=== PATIENT | female | born 1985 | race Caucasian/White ===

== ENCOUNTER → 2019-07-27 11:16 | Outpatient (BNVA) | payer OTHER, SELFPAY | PROVIDERS: Visit Provider Nurse Practitioner Family | DX: J02.9 Acute pharyngitis, unspecified (principal); R05 Cough; J06.9 Acute upper respiratory infection, unspecified; Z20.828 Contact with and (suspected) exposure to other viral communicable diseases | CPT/HCPCS: 87071; 87400; 87635; 87880 ==

== ENCOUNTER → 2022-01-21 17:48 | Outpatient (BNVA) | payer OTHER, SELFPAY | PROVIDERS: Visit Provider Family Medicine | DX: J02.9 Acute pharyngitis, unspecified (principal); R05.9 Cough, unspecified; R50.9 Fever, unspecified | CPT/HCPCS: 87400; 87426; 87880 ==

== ENCOUNTER → 2022-11-20 13:07 | Outpatient (BNVA) | payer OTHER, SELFPAY | PROVIDERS: Visit Provider Family Medicine | DX: Z00.00 Encounter for general adult medical examination without abnormal findings (principal) | CPT/HCPCS: 80053; 80061; 85025; 88304 ==

== ENCOUNTER → 2022-11-26 11:47 | Outpatient (BNVA) | payer OTHER, SELFPAY | PROVIDERS: PCP Family Medicine; Visit Provider Family Medicine | DX: Z02.1 Encounter for pre-employment examination (principal) | CPT/HCPCS: 86735; 86762; 86765; 86787 ==

== ENCOUNTER 2023-06-16 11:55 | Emergency (ER) | payer OTHER, SELFPAY ==
[2023-06-16 12:02] VITALS: BP 144/89; PULSE 90; RESP 16; TEMP 36.5; O2SAT 100; BMI 29.0
[2023-06-16 12:35] LABS: Glucose Point of Care 92 mg/dL (70-110)
[2023-06-16 12:36] VITALS: BP 152/99; PULSE 101; RESP 16; O2SAT 100
--- NOTE | 2023-06-16 13:05 | XRR_ITS ---
PROCEDURE INFORMATION: Exam: XR Cervical Spine Exam date and time: 06/16/2023 1:14 PM Age: 38 years old Clinical indication: Neck pain TECHNIQUE: Imaging protocol: Radiologic exam of the cervical spine. Views: 2 or 3 views. COMPARISON: No relevant prior studies available. FINDINGS: Bones/joints: Normal. No acute fracture. Normal alignment. Soft tissues: Unremarkable. XR/XR cervical spine 3V* [id number] IMPRESSION: No acute findings.
[2023-06-16 13:18] LABS: Basophils # 0.1 10^3/uL (0.0-0.1); Basophils % 0.7 %; Eosinophils # 0.1 10^3/uL (0.0-0.8); Eosinophils % 0.8 %; Hematocrit 45.9 % (36-47); Lymphocytes # 1.3 10^3/uL (0.8-4.8); Lymphocytes % 17.4 %; Mean Corpuscular HGB Conc 32.7 g/dL (30-55); Mean Corpuscular Hemoglobin 30.5 pg (27-33); Mean Corpuscular Volume 93.5 fl (85-98); Mean Platelet Volume 10.5 fL (7.4-10.4); Monocytes # 0.5 10^3/uL (0.2-0.9); Monocytes % 6.8 %; Nucleated Red Blood Cells % 0 %; Platelet Count 281 10^3/cmm (157-399); Red Blood Count 4.91 10^6/uL (3.85-5.65); Red Cell Distribution Width 13.2 % (12.1-15.1); White Blood Count 7.17 10^3/uL (3.29-11.43)
[2023-06-16] MEDS: ketorolac 30 mg/mL INJ IVP (13:23)
[2023-06-16] MEDS: orphenadrine 30 mg/mL Inj 2 mL 60 MG IVP (13:24)
[2023-06-16 13:34] LABS: Alanine Aminotransferase 17 U/L (0-33); Albumin Level 4.8 g/dL (3.5-5.2); Alkaline Phosphatase 60 U/L (35-105); Anion Gap 15.2 (5-19); Aspartate Amino Transferase 14 U/L (0-32); Blood Urea Nitrogen 12 mg/dL (6-20); Calcium 9.6 mg/dL (8.5-10.5); Carbon Dioxide 27 mmol/L (22-29); Chloride 101 mmol/L (98-107); Creatinine Clr Calc Pharmacy 119.6887; Globulin 3.2 g/dL (1.3-4.6); Glomerular Filtration Rate 94.7 mL/min (90-130); Glucose 80 mg/dL (65-115); Osmolality Calculated 287 mOsm/kg (285-295); Potassium 4.2 mmol/L (3.5-5.1); Sodium 139 mmol/L (136-145); Total Bilirubin 0.6 mg/dL (0.15-1.2)
--- NOTE | 2023-06-16 13:39 | W.ED.EXTPRO ---
HPI - Extremity Problem General: Chief complaint: Extremity Injury, Upper Stated complaint: left arm numbness Time Seen by Provider: 06/16/23 12:18 History of Present Illness: 38-year-old female presents emerged part with complaints of left shoulder pain and intermittent tingling down her left arm. She states that approximately 1 and half weeks ago she did receive a corticosteroid shot for pain as she slept on it incorrectly and felt like it was stiff at that time. She states she is intermittently felt dizziness and lightheaded and is concerned that it may have been the steroid shot that she received. She denies additional trauma or injury to the arm. She states she is doing a lot of reading and has her head flexed quite often after discussion with the patient it does appear that she has cervical radiculopathy. Review of Systems General: Reports: 10 or more systems reviewed and unremarkable except in HPI and below Musc: Reports: neck pain, extremity pain and joint pain PFSH ED PFSH: Medical History (Updated 06/16/23 @ 13:52 by Thaddeus Barragan MD) No significant past medical history Surgical History (Updated 11/20/22 @ 12:16 by Mabel Wells MD) History of lumpectomy of right breast benign Family History (Updated 11/20/22 @ 12:17 by Mabel Wells MD) Grandmother Cancer ovarian Grandfather Cancer lung (smoker) Mother Hypertension Denies family history of Diabetes CAD (coronary artery disease) Stroke Social History (Updated 11/20/22 @ 12:19 by Mabel Wells MD) Smoking and tobacco/nicotine status: never used tobacco/nicotine Alcohol intake: current Alcohol intake frequency: holidays/special occasions only Substance/Drug Use: never Household members: significant other Marital status: Single Marital status details: engaged Number of children: 0 Current occupational status: employed 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, 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 Tiffanie/Pentecostalism: Roman Catholic Special tiffanie needs: No Agree to transfusion: Yes Physical Exam Const: COMMON NORMALS: no acute distress, patient oriented x3 and alert HENMT: COMMON NORMALS: normocephalic, atraumatic, Normal external nose present and moist oral mucous membranes HEAD & SCALP: normocephalic and atraumatic NOSE: Normal external nose present Eye: COMMON NORMALS: Equal, round and reactive pupils present and EOMs intact bilaterally PUPIL: Yes Equal, round and reactive pupils present Neck/C-Spine: COMMON NORMALS: full ROM, no lymphadenopathy, supple and no meningeal signs CERVICAL SPINE: Yes cervical ROM normal Resp: COMMON NORMALS: normal respiratory effort, No use of accessory muscles and clear to auscultation bilaterally AUSCULTATION: clear to auscultation bilaterally Cardio: COMMON NORMALS: regular rate, regular rhythm, S1 normal heart sound present, S2 normal heart sound present and Peripheral pulses 2+ throughout RATE: regular rate RHYTHM: regular rhythm HEART SOUNDS: S1 normal heart sound present and S2 normal heart sound present PERIPHERAL PULSES: Peripheral pulses 2+ throughout GI: COMMON NORMALS: Normal to inspection, nondistended, normoactive bowel sounds present, Soft to palpation and non-tender PALPATION: Yes Soft to palpation Back/Pelvis: COMMON NORMALS: thoracic and lumbar spine normal to inspection and thoraco-lumbar ROM normal Extremity: COMMON NORMALS: normal to inspection, full ROM and capillary refill normal Neuro: COMMON NORMALS: patient oriented x3 SENSORIUM/ORIENTATION: Yes alert MENINGEAL SIGNS: Yes no meningeal signs SENSORY EXAM: Yes extremities MOTOR EXAM: 5/5 motor strength present throughout Course Vital Signs: Vital signs: Vital Signs Temperature 97.7 F 06/16/23 12:02 Pulse Rate 101 H 06/16/23 12:36 Respiratory Rate 16 06/16/23 12:36 Blood Pressure 152/99 06/16/23 12:36 Pulse Oximetry 100 06/16/23 12:36 Oxygen Delivery Me thod Room Air 06/16/23 12:36 MDM - Extremity (Nontraumatic) Medical Decision Making Physical exam completed and documented I did obtain CBC and CMP which appears to be all normal. I did obtain a cervical spine x-ray which appears to be normal. Patient was provided Toradol and Norflex and states improved control of her pain. I will prescribe her [place] and Flexeril at discharge and have her follow-up with her primary care provider. Medical Records I reviewed the patient's medical records. Lab Data I reviewed the patient's lab results. 06/16/23 13:13 06/16/23 13:13 Laboratory Results WBC 7.17 10^3/uL (3.29-11.43) 06/16/23 13:13 RBC 4.91 10^6/uL (3.85-5.65) 06/16/23 13:13 Hgb 15.00 g/dL (11.27-16.99) 06/16/23 13:13 Hct 45.9 % (36-47) 06/16/23 13:13 MCV 93.5 fl (85-98) 06/16/23 13:13 MCH 30.5 pg (27-33) 06/16/23 13:13 MCHC 32.7 g/dL (30-55) 06/16/23 13:13 RDW 13.2 % (12.1-15.1) 06/16/23 13:13 Plt Count 281 10^3/cmm (157-399) 06/16/23 13:13 MPV 10.5 fL (7.4-10.4) H 06/16/23 13:13 Neut % (Auto) 74.0 % 06/16/23 13:13 Lymph % (Auto) 17.4 % 06/16/23 13:13 [place] % (Auto) 6.8 % 06/16/23 13:13 Eos % (Auto) 0.8 % 06/16/23 13:13 Baso % (Auto) 0.7 % 06/16/23 13:13 Neut # (Auto) 5.30 10^3/uL (1.8-7.7) 06/16/23 13:13 Lymph # (Auto) 1.3 10^3/uL (0.8-4.8) 06/16/23 13:13 [place] # (Auto) 0.5 10^3/uL (0.2-0.9) 06/16/23 13:13 Eos # (Auto) 0.1 10^3/uL (0.0-0.8) 06/16/23 13:13 Baso # (Auto) 0.1 10^3/uL (0.0-0.1) 06/16/23 13:13 Nucleated RBC % (auto) 0 % 06/16/23 13:13 Nucleated RBCs # 0.0 /100WBC 06/16/23 13:13 Sodium 139 mmol/L (136-145) 06/16/23 13:13 Potassium 4.2 mmol/L (3.5-5.1) 06/16/23 13:13 Chloride 101 mmol/L (98-107) 06/16/23 13:13 Carbon Dioxide 27 mmol/L (22-29) 06/16/23 13:13 Anion Gap 15.2 (5-19) 06/16/23 13:13 BUN 12 mg/dL (6-20) 06/16/23 13:13 Creatinine 0.7 mg/dL (0.5-0.9) 06/16/23 13:13 GFR Calculation 94.7 mL/min (90-130) 06/16/23 13:13 Glucose 80 mg/dL (65-115) 06/16/23 13:13 POC Glucose 92 mg/dL (70-110) 06/16/23 12:33 Calculated Osmolality 287 mOsm/kg (285-295) 06/16/23 13:13 Calcium 9.6 mg/dL (8.5-10.5) 06/16/23 13:13 Total Bilirubin 0.6 mg/dL (0.15-1.2) 06/16/23 13:13 AST 14 U/L (0-32) 06/16/23 13:13 ALT 17 U/L (0-33) 06/16/23 13:13 Alkaline Phosphatase 60 U/L (35-105) 06/16/23 13:13 C-Reactive Protein 3.0 mg/L (0.0-4.9) 06/16/23 13:13 Total Protein 8.0 g/dL (6.6-8.7) 06/16/23 13:13 Albumin 4.8 g/dL (3.5-5.2) 06/16/23 13:13 Globulin 3.2 g/dL (1.3-4.6) 06/16/23 13:13 All radiology interpretation(s) finalized by discharge Discharge Plan Discharge Patient Disposition: Home Clinical Impression: Cervical radiculopathy Condition: Stable Prescriptions: New hydrocodone-acetaminophen 5-325 mg tablet 1 tab PO Q8H PRN (Reason: pain) Qty: 14 0RF cyclobenzaprine 10 mg tablet 10 mg PO Q8H Qty: 14 0RF Discharge Orders: Discharge ED (Routine); Ordered 06/16/23 Ordered By: Thaddeus Barragan Referrals: Mabel Wells MD [Primary Care Provider] - Discharge Diet: Usual diet Discharge Activity: Resume usual activity Patient Instructions: Opioid Safety, Pain Management Activity Restrictions/Additional Instructions: Your Care Instructions Apply Heat or Ice- alternating applications. Apply it for 10 to 20 minutes at a time, several times a day. Put a thin cloth between the heat or ice and your skin. Be safe with medicines. Read and follow all instructions on the label. If the doctor gave you a prescription medicine for pain, give it as prescribed. Store your prescription pain medicines where no one else can get to them. When you are done using them, dispose of them quickly and safely. Your local pharmacy or hospital may have a drop-off site. Gently rub the area to relieve pain and help with blood flow. Massage the area lightly. Take it easy for a couple of days to promote and allow healing. You can do usual activities if they do not hurt your neck or put it at risk for more stress or injury. To prevent future neck and shoulder pain, do exercises to stretch and strengthen the neck and back. Coding Level of Care Code ED Asphalt Paving Superintendent for Clayton Quintero
[2023-06-16 13:48] LABS: Erythrocyte Sedimentation Rate 1 mm/hr (0-15)
[2023-06-16 14:15] VITALS: BP 148/96; PULSE 98; RESP 16; TEMP 36.5; O2SAT 100
== END 2023-06-16 14:16 | disposition home or self-care (01) ==
PROVIDERS: Emergency Provider Internal Medicine; PCP Family Medicine
DX: M54.12 Radiculopathy, cervical region (principal)
CPT/HCPCS: 36416; 72040; 80053; 82962; 85025; 85651; 86140; 96374; 96375; 99284; J1885; J2360

== ENCOUNTER 2023-08-22 17:41 | Emergency (ER) | payer OTHER, SELFPAY ==
--- NOTE | 2023-08-22 17:42 | XRR_ITS ---
PROCEDURE INFORMATION: Exam: XR Chest Exam date and time: 08/22/2023 6:31 PM Age: 38 years old Clinical indication: Pain; Angina pectoris; Additional info: Cp TECHNIQUE: Imaging protocol: Radiologic exam of the chest. Views: 1 view. COMPARISON: CR (NECK, ) 06/16/2023 1:14 PM FINDINGS: Lungs: Unremarkable. No consolidation. Pleural spaces: Unremarkable. No pleural effusion. No pneumothorax. Heart/Mediastinum: Unremarkable. No cardiomegaly. Bones/joints: Unremarkable. XR/XR chest 1V portable [id number] IMPRESSION: No acute findings.
--- NOTE | 2023-08-22 17:46 | ECG_ITS ---
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 Measurements Intervals [place] Rate: 91 P: 61 OR: 135 QRS: 56 QRSD: 84 T: 39 QT: 327 QTc: 404 Interpretive Statements SINUS RHYTHM No previous ECG available for comparison Electronically Signed On 08-23-2023 0:08:30 CDT by Daniel Calhoun M.D. [id number]
[2023-08-22 17:50] VITALS: BP 138/94; PULSE 104; RESP 16; TEMP 36.6; O2SAT 100
[2023-08-22 18:21] LABS: Basophils % 0.6 %; Eosinophils # 0.1 10^3/uL (0.0-0.8); Eosinophils % 1.8 %; Hematocrit 39.4 % (36-47); Lymphocytes # 1.6 10^3/uL (0.8-4.8); Lymphocytes % 24.7 %; Mean Corpuscular Hemoglobin 31.3 pg (27-33); Mean Corpuscular Volume 94.7 fl (85-98); Mean Platelet Volume 10.5 fL (7.4-10.4); Monocytes # 0.4 10^3/uL (0.2-0.9); Monocytes % 6.2 %; Neutrophils # 4.41 10^3/uL (1.8-7.7); Neutrophils % 66.4 %; Nucleated Red Blood Cells % 0 %; Platelet Count 229 10^3/cmm (157-399); Red Blood Count 4.16 10^6/uL (3.85-5.65); Red Cell Distribution Width 12.5 % (12.1-15.1); White Blood Count 6.64 10^3/uL (3.29-11.43)
--- NOTE | 2023-08-22 18:34 | ED_ITS ---
HPI - Chest Pain 2 General: Chief Complaint: Chest Pain Stated Complaint: chest pains, dizzy Time Seen by Provider: 08/22/23 18:29 History of Present Illness: 38-year-old female who presents the [facility] room with near syncope and chest pressure. She says after she had taken her groceries and she had an episode after she bent over and stood back up where she got very lightheaded. She then felt some pressure in her chest. She checked her blood pressure and it was elevated. She has been sort of stress with school was not sure if some of this had to do with anxiety. No fevers. No cough. No abdominal pain. No nausea or vomiting. Review of Systems 2 Narrative: Constitutional symptoms: Negative except as documented in HPI. Skin symptoms: Negative except as documented in HPI. Eye symptoms: Negative except as documented in HPI. ENMT symptoms: Negative except as documented in HPI. Respiratory symptoms: Negative except as documented in HPI. Cardiovascular symptoms: Negative except as documented in HPI. Gastrointestinal symptoms: Negative except as documented in HPI. Genitourinary symptoms: Negative except as documented in HPI. Musculoskeletal symptoms: Negative except as documented in HPI. Neurologic symptoms: Negative except as documented in HPI. Psychiatric symptoms: Negative except as documented in HPI. Endocrine symptoms: Negative except as documented in HPI. PFSH ED 2 PFSH: Medical History (Updated 08/22/23 @ 19:20 by Helen Barbour MD) No significant past medical history Surgical History (Updated 11/20/22 @ 12:16 by Mabel Wells MD) History of lumpectomy of right breast benign Family History (Updated 11/20/22 @ 12:17 by Mabel Wells MD) Grandmother Cancer ovarian Grandfather Cancer lung (smoker) Mother Hypertension Denies family history of Diabetes CAD (coronary artery disease) Stroke Social History (Updated 11/20/22 @ 12:19 by Mabel Wells MD) Smoking and tobacco/nicotine status: never used tobacco/nicotine Alcohol intake: current Alcohol intake frequency: holidays/special occasions only Substance/Drug Use: never Household members: significant other Marital status: Single Marital status details: engaged Number of children: 0 Current occupational status: employed 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 Skin: Warm, dry. Head: Normocephalic, atraumatic. Neck: Supple, trachea midline. Eye: Extraocular movements are intact. Ears, nose, mouth and throat: mucosa moist. Cardiovascular: Regular, Normal peripheral perfusion. Respiratory: Lungs are clear to auscultation, respirations are non-labored, breath sounds are equal, Symmetrical chest wall expansion. Gastrointestinal: Soft, Nontender, Non distended, Normal bowel sounds. Musculoskeletal: Normal ROM, no deformity. Neurological: Alert and oriented, No focal neurological deficit observed. Psychiatric: Cooperative, appropriate mood & affect. Course 2 Vital Signs: Vital signs: Vital Signs Temperature 97.8 F 08/22/23 17:50 Pulse Rate 81 08/22/23 19:14 Respiratory Rate 16 08/22/23 19:14 Blood Pressure 138/95 08/22/23 19:14 Pulse Oximetry 100 08/22/23 19:14 Oxygen Delivery Me thod Room Air 08/22/23 17:50 MDM - Chest Pain Medical Decision Making Medical decision making: Differential diagnosis including but not limited to and based on the above HPI, review of systems and physical exam: Patient may have had some orthostasis or tachycardia. Rule out acute coronary syndrome. Rule out PE with a D-dimer. Rule out anemia. hCG quant was ordered. Also TSH. Orders placed to evaluate differential diagnosis based on the above differential, HPI and physical exam Chest x-ray: No acute process. No infiltrate. No pneumothorax. No cardiomegaly. This was reviewed and interpreted by myself the ER physician. EKG: Time 1746 rate 91. Normal sinus rhythm, No ST-T changes, no ectopy, normal TN & QRS intervals, This was reviewed and interpreted by myself the ER physician at 1750 Lab Review: Laboratory results were reviewed and interpreted by myself the emergency room physician. Lab work is unremarkable. D-dimer is negative. White count is 6. BUN and creatinine are 10 and 0.7. Urine is negative for infection. Liver enzymes are negative. Her cardiac markers are negative. I reviewed the patient's medical record. Reexamination: Patient remained stable. No increased work of breathing. No altered mental status. No focal motor deficits. Assessment and plan: Near syncope Noncardiac chest pain - Discharged home - Discussed findings and plan with patient. Answered any questions. - All laboratory values were reviewed and interpreted personally by myself, the ER physician - All imaging was reviewed and interpreted personally by myself, the ER physician. - Evaluation and treatment of this problem were appropriate in the emergency setting Lab Data 08/22/23 18:12 08/22/23 18:12 Laboratory Results WBC 6.64 10^3/uL (3.29-11.43) 08/22/23 18:12 RBC 4.16 10^6/uL (3.85-5.65) 08/22/23 18:12 Hgb 13.00 g/dL (11.27-16.99) 08/22/23 18:12 Hct 39.4 % (36-47) 08/22/23 18:12 MCV 94.7 fl (85-98) 08/22/23 18:12 MCH 31.3 pg (27-33) 08/22/23 18:12 MCHC 33.0 g/dL (30-55) 08/22/23 18:12 RDW 12.5 % (12.1-15.1) 08/22/23 18:12 Plt Count 229 10^3/cmm (157-399) 08/22/23 18:12 MPV 10.5 fL (7.4-10.4) H 08/22/23 18:12 Neut % (Auto) 66.4 % 08/22/23 18:12 Lymph % (Auto) 24.7 % 08/22/23 18:12 [place] % (Auto) 6.2 % 08/22/23 18:12 Eos % (Auto) 1.8 % 08/22/23 18:12 Baso % (Auto) 0.6 % 08/22/23 18:12 Neut # (Auto) 4.41 10^3/uL (1.8-7.7) 08/22/23 18:12 Lymph # (Auto) 1.6 10^3/uL (0.8-4.8) 08/22/23 18:12 [place] # (Auto) 0.4 10^3/uL (0.2-0.9) 08/22/23 18:12 Eos # (Auto) 0.1 10^3/uL (0.0-0.8) 08/22/23 18:12 Baso # (Auto) 0.0 10^3/uL (0.0-0.1) 08/22/23 18:12 Nucleated RBC % (auto) 0 % 08/22/23 18:12 Nucleated RBCs # 0.0 /100WBC 08/22/23 18:12 D-Dimer <= 0.27 ug/mLFEU (0-0.59) 08/22/23 18:12 Sodium 139 mmol/L (136-145) 08/22/23 18:12 Potassium 3.8 mmol/L (3.5-5.1) 08/22/23 18:12 Chloride 102 mmol/L (98-107) 08/22/23 18:12 Carbon Dioxide 26 mmol/L (22-29) 08/22/23 18:12 Anion Gap 14.8 (5-19) 08/22/23 18:12 BUN 10 mg/dL (6-20) 08/22/23 18:12 Creatinine 0.7 mg/dL (0.5-0.9) 08/22/23 18:12 GFR Calculation 94.7 mL/min (90-130) 08/22/23 18:12 Glucose 115 mg/dL (65-115) 08/22/23 18:12 Calculated Osmolality 288 mOsm/kg (285-295) 08/22/23 18:12 Calcium 9.0 mg/dL (8.5-10.5) 08/22/23 18:12 Total Bilirubin 0.4 mg/dL (0.15-1.2) 08/22/23 18:12 AST 20 U/L (0-32) 08/22/23 18:12 ALT 20 U/L (0-33) 08/22/23 18:12 Alkaline Phosphatase 61 U/L (35-105) 08/22/23 18:12 Troponin T Baseline < 6 ng/L (0-10) 08/22/23 18:12 Total Protein 7.6 g/dL (6.6-8.7) 08/22/23 18:12 Albumin 5.0 g/dL (3.5-5.2) 08/22/23 18:12 Globulin 2.6 g/dL (1.3-4.6) 08/22/23 18:12 TSH 3.35 uIU/mL (0.27-4.20) 08/22/23 18:12 HCG, Qual Negative (Negative) 08/22/23 18:44 Urine Color Straw (Yellow) 08/22/23 18:44 Urine Appearance Sl hazy (CLEAR) A 08/22/23 18:44 Urine pH 7 (5-7) 08/22/23 18:44 Ur Specific [place] 1.000 (1.005-1.030) L 08/22/23 18:44 Urine Protein Neg (Negative) 08/22/23 18:44 Urine Glucose (UA) Norm (Normal) 08/22/23 18:44 Urine Ketones Negative (Negative) 08/22/23 18:44 Urine Blood Neg (Negative) 08/22/23 18:44 Urine Nitrate Negative (Negative) 08/22/23 18:44 Urine Bilirubin Neg (Negative) 08/22/23 18:44 Urine Urobilinogen Norm mg/dL (Negative) 08/22/23 18:44 Ur Leukocyte Esterase Negative (Negative) 08/22/23 18:44 Urine RBC None /hpf (0-2) 08/22/23 18:44 Urine WBC None /hpf (0-5) 08/22/23 18:44 Ur Squamous Epith Cells 0-4 /hpf (0-5) H 08/22/23 18:44 Amorphous Sediment Not Reportable 08/22/23 18:44 Urine Bacteria None /hpf (NONE) 08/22/23 18:44 Urine Mucus None /hpf 08/22/23 18:44 All radiology interpretation(s) finalized by discharge Discharge Plan Discharge Patient Disposition: Home Clinical Impression: Near syncope, Chest pain, non-cardiac Condition: Stable Discharge Orders: Discharge ED (Routine); Ordered 08/22/23 Ordered By: Helen Barbour Referrals: Mabel Wells MD [Primary Care Provider] - 4-7 days Discharge Diet: Usual diet Discharge Activity: Increase activity as tolerated Patient Instructions: Near Syncope (ED) Activity Restrictions/Additional Instructions: Thank you for choosing [facility] for your healthcare needs today. Please realize this is an emergency room and that we are providing you with a medical screening exam and this may not be complete and all inclusive of all the testing and or work up that you may need to determine your ailment or severity of your illness. You have been screened and evaluated and felt safe for discharge. Health conditions do change or evolve sometimes and as such it is important that you follow up with your Primary Doctor to be re checked, 3-5 days is a general good time frame for follow up. You are always welcome to return to the ED for re assessment if your symptoms are worsening or you have new concerns Coding Level of Care Code ED Research Spec for Clayton Quintero
[2023-08-22 18:41] LABS: HCG, Serum Qual Negative (Negative)
[2023-08-22 18:44] LABS: Troponin(5th) Baseline < 6 ng/L (0-10)
[2023-08-22 18:48] LABS: Alanine Aminotransferase 20 U/L (0-33); Alkaline Phosphatase 61 U/L (35-105); Anion Gap 14.8 (5-19); Aspartate Amino Transferase 20 U/L (0-32); Blood Urea Nitrogen 10 mg/dL (6-20); Carbon Dioxide 26 mmol/L (22-29); Chloride 102 mmol/L (98-107); Creatinine Clr Calc Pharmacy 119.6887; Globulin 2.6 g/dL (1.3-4.6); Glomerular Filtration Rate 94.7 mL/min (90-130); Glucose 115 mg/dL (65-115); Osmolality Calculated 288 mOsm/kg (285-295); Potassium 3.8 mmol/L (3.5-5.1); Sodium 139 mmol/L (136-145); Total Bilirubin 0.4 mg/dL (0.15-1.2); Total Protein 7.6 g/dL (6.6-8.7)
[2023-08-22 19:01] LABS: Bilirubin Urine Neg (Negative); Blood Urine Neg (Negative); Glucose Urine UA Norm (Normal); Ketones Urine Negative (Negative); Leukocyte Esterase Urine Negative (Negative); Nitrate Urine Negative (Negative); Protein Urine Neg (Negative); Urine Appearance SL Hazy (CLEAR); Urine Color Straw (Yellow); Urobilinogen Urine Norm (Negative); pH Urine 7 (5-7)
[2023-08-22 19:05] LABS: HCG Qualitative Urine. Negative (Negative)
[2023-08-22 19:07] LABS: D Dimer <= 0.27 ug/mLFEU (0-0.59)
[2023-08-22 19:08] LABS: Add Urine Culture? No; Squamous Epithelial Cell Urine 0-4 /hpf (0-5)
[2023-08-22 19:14] VITALS: BP 138/95; PULSE 81; RESP 16; O2SAT 100
[2023-08-22 19:15] LABS: Thyroid Stimulating Hormone 3.35 uIU/mL (0.27-4.20)
== END 2023-08-22 19:33 | disposition home or self-care (01) ==
PROVIDERS: Emergency Medicine; Emergency Provider Emergency Medicine; PCP Family Medicine
DX: R55 Syncope and collapse (principal); R07.89 Other chest pain
CPT/HCPCS: 36415; 71045; 80053; 81001; 81025; 84443; 84484; 84703; 85025; 85378; 93005; 99285

== ENCOUNTER 2024-01-23 06:27 | Emergency (ER) | payer OTHER, SELFPAY ==
[2024-01-23 06:37] VITALS: BMI 28.2
[2024-01-23 06:41] VITALS: BP 120/88; PULSE 75; O2SAT 98
--- NOTE | 2024-01-23 06:41 | CT_ITS ---
WS: [id number] CT ABDOMEN AND PELVIS WITH CONTRAST HISTORY: rlq/ruq pain TECHNIQUE: Imaging performed of the abdomen and pelvis with IV contrast. Single phase imaging of the abdomen. Coronal and sagittal reformats are submitted. All CT scans at [facility] use at [address] one of these dose optimization techniques: automated exposure control; mA and/or kV adjustment per patient size (includes targeted exams where dose is matched to clinical indication); or iterative re construction. IV CONTRAST: Omnipaque 350; 100 mL IV. Oral contrast: No DLP: 684.03 mGy.cm COMPARISON: None available. Lower thorax: Lung bases are clear. Heart is normal size. No hiatal hernia. Liver/biliary system: Focal area of decreased attenuation measures 9 x 9 mm in the periphery of the R IGHT lower lobe. This will need to be further evaluated. Otherwise liver is negative. Normal portal v ein. Gallbladder: Normal. No gallstones or wall thickening. No pericholecystic fluid. Pancreas: Normal size pancreas and pancreatic duct. No adjacent inflammation. Spleen: Normal size spleen. No mass or infarct. Adrenal glands: Normal. Right kidney: Normal. Left kidney: Normal. Aorta: Normal. Lymphadenopathy: None. Free fluid: Small amount of free fluid in the cul-de-sac. GI tract: No GI tract obstruction. No evidence for appendicitis. Abdominal wall: Unremarkable abdominal wall. No hernia. Pelvis: Small amount of free fluid in the pelvis. Elevated Hounsfield units suggesting this may be in fection or blood. The uterus is markedly enlarged and heterogeneous. There is a heterogeneously enhan cing mass distorting and displacing the adjacent structures. Mass is centered in the posterior myomet rium measuring 7.7 x 9.5 x 10.0 cm. The endometrium is being displaced anteriorly and to the LEFT. Cas th ovaries are being displaced superiorly. In the RIGHT ovary there is a peripherally enhancing cysti c mass which is probably a collapsing corpus luteum. There is a small amount of adjacent free fluid. Due to the significant displacement of each ovary there is risk for torsion. The LEFT ovary contains several small follicles. There is an additional lobulated low-attenuation mass in this cervix which m ay be nabothian cyst. Bones: Unremarkable. CT/CT abdomen pelvis w con* [id number] IMPRESSION: 1. Large heterogeneous uterine mass measures 7.7 x 9.5 x 10.0 cm. Most consist ent with a uterine leiomyoma. Large mass is displacing the endometrium and bot h ovaries. 2. Peripherally enhancing cystic mass in the RIGHT ovary. RIGHT ovary is being displaced superiorly and the peripherally enhancing cystic mass is probably t he involuting corpus luteum. 3. Due to the displacement of the ovaries and the free fluid in the pelvis, wh ich is probably blood, patient is at risk for ovarian torsion. At this time the ovary does not appear significantly enlarged to suggest there is a torsion. 4. Patient would benefit from transvaginal and transabdominal imaging. 5. No renal obstruction. 6. Indeterminant hepatic lesion measures 9 x 9 mm. May be a benign cyst or hem angioma. Cannot exclude metastatic site although with no history of malignancy this is less likely. Recommend follow-up MRI liver with and without contrast to further characterize. Notified Shanelle Morgan MD at 01/23/2024 8:49 AM.
--- NOTE | 2024-01-23 06:41 | W.ED.ABDPA2 ---
HPI - Abdominal Pain General: Chief Complaint: Abdominal Pain Stated Complaint: abd pain Time Seen by Provider: 01/23/24 06:31 Source: patient Mode of arrival: ambulatory Limitations: no limitations History of Present Illness: 38-year-old female states she has been having abdominal pain mild last night got much worse this morning. States the pain is in her right upper quadrant and right lower quadrant. States pain is sharp in nature worse with movement rates pain 8 out of 10 currently has had some nausea denies any vomiting or diarrhea denies dysuria denies fever. Associated Symptoms: Reports nausea; Denies chills, diarrhea, dysuria, fever(s) and vomiting Related Data Date of Last Menstrual Period: 01/07/24 Previous Rx's Medication Instructions Recorded hydrocodone 5 mg-acetaminophen 325 1 tab PO Q6H PRN pain #14 tabs 01/23/24 mg tablet ondansetron 4 mg disintegrating 4 mg PO Q6H PRN nausea and 01/23/24 tablet vomiting #14 tabs Allergies Allergy/AdvReac Type Severity Reaction Status Date / Time No Known Allergies Allergy Verified 01/23/24 06:41 Review of Systems Const: Denies: fever(s), chills, body aches or change in appetite ENMT: Denies: throat pain or dental pain Card: Denies: chest pain Resp: Denies: dyspnea GI: Reports: abdominal pain and nausea; Denies: vomiting or diarrhea : Denies: dysuria Musc: Denies: neck pain or back pain Skin/Breast: Denies: rash Neuro: Denies: headache(s) PFS ED PFSH: Medical History (Updated 01/23/24 @ 10:39 by Shanelle Morgan MD) No significant past medical history Surgical History (Updated 11/20/22 @ 12:16 by Mabel Wells MD) History of lumpectomy of right breast benign Family History (Updated 11/20/22 @ 12:17 by Mabel Wells MD) Grandmother Cancer ovarian Grandfather Cancer lung (smoker) Mother Hypertension Denies family history of Diabetes CAD (coronary artery disease) Stroke Social History (Updated 11/20/22 @ 12:19 by Mabel Wells MD) Smoking and tobacco/nicotine status: never used tobacco/nicotine Alcohol intake: current Alcohol intake frequency: holidays/special occasions only Substance/Drug Use: never Household members: significant other Marital status: Single Marital status details: engaged Number of children: 0 Current occupational status: employed 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, 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 Tiffanie/Advent: [employer] Special tiffanie needs: No Agree to transfusion: Yes Female Reproductive History: Date of last menstrual period: 01/07/24 Physical Exam Const: COMMON NORMALS: no acute distress, patient oriented x3 and healthy appearing HENMT: COMMON NORMALS: normocephalic and atraumatic HEAD & SCALP: normocephalic and atraumatic Eye: COMMON NORMALS: conjunctivae normal CONJUNCTIVA: Yes conjunctivae normal Neck/C-Spine: COMMON NORMALS: full ROM and supple Chest: COMMONS NORMALS: normal inspection of the chest Resp: COMMON NORMALS: normal respiratory effort Cardio: COMMON NORMALS: regular rate, regular rhythm and No murmurs present (Cardio) RATE: regular rate RHYTHM: regular rhythm GI: COMMON NORMALS: Normal to inspection, nondistended, normoactive bowel sounds present, Soft to palpation and no masses PALPATION: Yes Soft to palpation and Yes Tenderness to palpation present (GI) Details: RLQ and RUQ Extremity: COMMON NORMALS: normal to inspection and full ROM Neuro: COMMON NORMALS: patient oriented x3, moves all extremities and no focal motor deficits Psych: COMMON NORMALS: mental status grossly normal, Normal thought process present and cooperative THOUGHT PROCESS: Normal thought process present Skin: COMMON NORMALS: no rashes or lesions noted and no wounds GENERAL SKIN EXAM: no rashes or lesions noted Course Vital Signs: Vital signs: Vital Signs Pulse Rate 75 01/23/24 06:41 Respiratory Rate 16 01/23/24 07:22 Blood Pressure 120/88 01/23/24 06:41 Pulse Oximetry 98 01/23/24 06:41 Oxygen Delivery Me thod Room Air 01/23/24 06:41 MDM - Abdominal Pain Medical Decision Making Patient presents here with abdominal pain likely from large uterine fibroids CT ultrasound showed no other findings her pain is much improved here blood works normal no signs of ovarian torsion will get her follow-up with OB she is return if worsening she understands agrees to plan. Medical Records I reviewed the patient's medical records. Lab Data I reviewed the patient's lab results. 01/23/24 06:45 01/23/24 06:45 Labs/Radiology: Radiology Impressions Abdomen/Pelvis CT 01/23/24 06:41 IMPRESSION: 1. Large heterogeneous uterine mass measures 7.7 x 9.5 x 10.0 cm. Most consistent with a uterine leiomyoma. Large mass is displacing the endometrium and both ovaries. 2. Peripherally enhancing cystic mass in the RIGHT ovary. RIGHT ovary is being displaced superiorly and the peripherally enhancing cystic mass is probably the involuting corpus luteum. 3. Due to the displacement of the ovaries and the free fluid in the pelvis, which is probably blood, patient is at risk for ovarian torsion. At this time the ovary does not appear significantly enlarged to suggest there is a torsion. 4. Patient would benefit from transvaginal and transabdominal imaging. 5. No renal obstruction. 6. Indeterminant hepatic lesion measures 9 x 9 mm. May be a benign cyst or hemangioma. Cannot exclude metastatic site although with no history of malignancy this is less likely. Recommend follow-up MRI liver with and without contrast to further characterize. Notified Shanelle Morgan MD at 01/23/2024 8:49 AM. Pelvic/Transvag US 01/23/24 08:59 IMPRESSION: 1. No RIGHT ovarian torsion identified. Normal vascularity. 2. Small to moderate amount of complex free fluid in the cul-de-sac is probably blood from a ruptured hemorrhagic cyst. 3. LEFT ovary is not identified. 4. Large leiomyoma measuring 8.3 x 8.8 x 6.7 cm with distortion of the endometrium and displacement of the ovaries. Laboratory Results WBC 7.77 10^3/uL (3.29-11.43) 01/23/24 06:45 RBC 4.55 10^6/uL (3.85-5.65) 01/23/24 06:45 Hgb 13.70 g/dL (11.27-16.99) 01/23/24 06:45 Hct 41.5 % (36-47) 01/23/24 06:45 MCV 91.2 fl (85-98) 01/23/24 06:45 MCH 30.1 pg (27-33) 01/23/24 06:45 MCHC 33.0 g/dL (30-55) 01/23/24 06:45 RDW 12.4 % (12.1-15.1) 01/23/24 06:45 Plt Count 236 10^3/cmm (157-399) 01/23/24 06:45 MPV 11.0 fL (7.4-10.4) H 01/23/24 06:45 Neut % (Auto) 61.2 % 01/23/24 06:45 Lymph % (Auto) 30.0 % 01/23/24 06:45 [place] % (Auto) 6.4 % 01/23/24 06:45 Eos % (Auto) 1.8 % 01/23/24 06:45 Baso % (Auto) 0.3 % 01/23/24 06:45 Neut # (Auto) 4.76 10^3/uL (1.8-7.7) 01/23/24 06:45 Lymph # (Auto) 2.3 10^3/uL (0.8-4.8) 01/23/24 06:45 [place] # (Auto) 0.5 10^3/uL (0.2-0.9) 01/23/24 06:45 Eos # (Auto) 0.1 10^3/uL (0.0-0.8) 01/23/24 06:45 Baso # (Auto) 0.0 10^3/uL (0.0-0.1) 01/23/24 06:45 Nucleated RBC % (auto) 0 % 01/23/24 06:45 Nucleated RBCs # 0.0 /100WBC 01/23/24 06:45 Sodium 137 mmol/L (136-145) 01/23/24 06:45 Potassium 3.6 mmol/L (3.5-5.1) 01/23/24 06:45 Chloride 102 mmol/L (98-107) 01/23/24 06:45 Carbon Dioxide 23 mmol/L (22-29) 01/23/24 06:45 Anion Gap 15.6 (5-19) 01/23/24 06:45 BUN 9 mg/dL (6-20) 01/23/24 06:45 Creatinine 0.7 mg/dL (0.5-0.9) 01/23/24 06:45 GFR Calculation 94.7 mL/min (90-130) 01/23/24 06:45 Glucose 111 mg/dL (65-115) 01/23/24 06:45 Calculated Osmolality 283 mOsm/kg (285-295) L 01/23/24 06:45 Calcium 8.9 mg/dL (8.5-10.5) 01/23/24 06:45 Total Bilirubin 0.4 mg/dL (0.15-1.2) 01/23/24 06:45 AST 16 U/L (0-32) 01/23/24 06:45 ALT 16 U/L (0-33) 01/23/24 06:45 Alkaline Phosphatase 56 U/L (35-105) 01/23/24 06:45 Total Protein 7.0 g/dL (6.6-8.7) 01/23/24 06:45 Albumin 4.6 g/dL (3.5-5.2) 01/23/24 06:45 Globulin 2.4 g/dL (1.3-4.6) 01/23/24 06:45 Lipase 50 U/L (13-60) 01/23/24 06:45 HCG, Qual Negative (Negative) 01/23/24 06:45 Urine Color Yellow (Yellow) 01/23/24 06:43 Urine Appearance Clear (CLEAR) 01/23/24 06:43 Urine pH 7.5 (5-7) 01/23/24 06:43 Ur Specific [place] 1.018 (1.005-1.030) 01/23/24 06:43 Urine Protein Negative (Negative) 01/23/24 06:43 Urine Glucose (UA) Negative (Normal) 01/23/24 06:43 Urine Ketones Negative (Negative) 01/23/24 06:43 Urine Blood Negative (Negative) 01/23/24 06:43 Urine Nitrate Negative (Negative) 01/23/24 06:43 Urine Bilirubin Negative (Negative) 01/23/24 06:43 Urine Urobilinogen 1.0 mg/dL (Negative) 01/23/24 06:43 Ur Leukocyte Esterase Trace (Negative) A 01/23/24 06:43 Urine RBC 0-2 /hpf (0-2) 01/23/24 06:43 Urine WBC 6-10 /hpf (0-5) 01/23/24 06:43 Ur Squamous Epith Cells 0-5 /hpf (0-5) 01/23/24 06:43 Amorphous Sediment Not Reportable 01/23/24 06:43 Urine Bacteria None seen /hpf (NONE) 01/23/24 06:43 Hyaline Casts 0.40 /lpf 01/23/24 06:43 All radiology interpretation(s) finalized by discharge Discharge Plan Discharge Patient Disposition: Home Clinical Impression: Abdominal pain, Uterine fibroid Condition: Stable Prescriptions: New hydrocodone-acetaminophen 5-325 mg tablet 1 tab PO Q6H PRN (Reason: pain) Qty: 14 0RF ondansetron 4 mg tablet,disintegrating 4 mg PO Q6H PRN (Reason: nausea and vomiting) Qty: 14 0RF Discharge Orders: Discharge ED (Routine); Ordered 01/23/24 Ordered By: Shanelle Morgan Referrals: Vikas Herrera MD [Physician] - 4-7 days Mabel Wells MD [Primary Care Provider] - Discharge Diet: Advance as tolerated Discharge Activity: Resume usual activity Patient Instructions: Uterine Fibroids (ED), Abdominal Pain (ED) Coding Level of Care Code ED Development Coordinator for Clayton Quintero
[2024-01-23 06:56] LABS: Bilirubin Urine Negative (Negative); Blood Urine Negative (Negative); Glucose Urine UA Negative (Normal); Ketones Urine Negative (Negative); Leukocyte Esterase Urine Trace (Negative); Nitrate Urine Negative (Negative); Protein Urine Negative (Negative); Specific Gravity, Urine 1.018 (1.005-1.030); Urine Appearance Clear (CLEAR); Urine Color Yellow (Yellow); pH Urine 7.5 (5-7)
[2024-01-23 07:01] LABS: Basophils % 0.3 %; Eosinophils # 0.1 10^3/uL (0.0-0.8); Eosinophils % 1.8 %; Hematocrit 41.5 % (36-47); Lymphocytes # 2.3 10^3/uL (0.8-4.8); Mean Corpuscular Hemoglobin 30.1 pg (27-33); Mean Corpuscular Volume 91.2 fl (85-98); Monocytes # 0.5 10^3/uL (0.2-0.9); Monocytes % 6.4 %; Neutrophils # 4.76 10^3/uL (1.8-7.7); Neutrophils % 61.2 %; Nucleated Red Blood Cells % 0 %; Platelet Count 236 10^3/cmm (157-399); Red Blood Count 4.55 10^6/uL (3.85-5.65); Red Cell Distribution Width 12.4 % (12.1-15.1); White Blood Count 7.77 10^3/uL (3.29-11.43)
[2024-01-23 07:01] LABS: Add Urine Microscopic? YES; Bacteria Urine None Seen /hpf; RBC Urine 0-2 /hpf (0-2); Squamous Epithelial Cell Urine 0-5 /hpf (0-5)
[2024-01-23 07:04] LABS: HCG, Serum Qual Negative (Negative)
[2024-01-23 07:13] LABS: Alanine Aminotransferase 16 U/L (0-33); Albumin Level 4.6 g/dL (3.5-5.2); Alkaline Phosphatase 56 U/L (35-105); Anion Gap 15.6 (5-19); Aspartate Amino Transferase 16 U/L (0-32); Blood Urea Nitrogen 9 mg/dL (6-20); Calcium 8.9 mg/dL (8.5-10.5); Carbon Dioxide 23 mmol/L (22-29); Chloride 102 mmol/L (98-107); Creatinine Clr Calc Pharmacy 118.0975; Globulin 2.4 g/dL (1.3-4.6); Glomerular Filtration Rate 94.7 mL/min (90-130); Glucose 111 mg/dL (65-115); Lipase 50 U/L (13-60); Osmolality Calculated 283 mOsm/kg (285-295); Potassium 3.6 mmol/L (3.5-5.1); Sodium 137 mmol/L (136-145); Total Bilirubin 0.4 mg/dL (0.15-1.2)
[2024-01-23] MEDS: ondansetron 2 mg/ML SDV 2 mL 4 MG IVP (07:20)
[2024-01-23 07:22] VITALS: RESP 16
[2024-01-23] MEDS: morphine 4 mg/mL SDV 1 mL IVP (07:22)
[2024-01-23] MEDS: iohexol 350 mg/mL 500 mL Btl (per mL) IV (07:28)
--- NOTE | 2024-01-23 08:59 | US_ITS ---
WS: [id number] US pelv w/transvag [id number] HISTORY: lower abd pain COMPARISON: None available. Uterus: 9.1 cm x 4.4 cm x 4.3 cm. Uterus is enlarged and very heterogeneous. Filling majority of the uterine body is a large heterogene ous mass measuring 8.3 x 8.8 x 6.7 cm. Minimal vascularity. This large mass is distorting the endomet rium. Endometrium: 0.8 cm. Endometrium is being displaced anteriorly and to the LEFT. Normal appearance of the endometrium. Right ovary: 3.5 cm x 2.1 cm x 3.0 cm. RIGHT ovary is displaced superiorly and best seen on transabdo candice abdominal imaging. The ovary is not significantly enlarged and there is blood flow to the ovary . Left ovary: Not identified. Complex free fluid in the cul-de-sac. US/US pelv w/transvag [id number] IMPRESSION: 1. No RIGHT ovarian torsion identified. Normal vascularity. 2. Small to moderate amount of complex free fluid in the cul-de-sac is probabl y blood from a ruptured hemorrhagic cyst. 3. LEFT ovary is not identified. 4. Large leiomyoma measuring 8.3 x 8.8 x 6.7 cm with distortion of the endomet rium and displacement of the ovaries.
[2024-01-23 09:57] VITALS: BP 135/87; PULSE 100; O2SAT 100
[2024-01-23 10:00] VITALS: BP 130/84; PULSE 85; O2SAT 98
[2024-01-23 10:30] VITALS: BP 130/81; PULSE 81; O2SAT 100
[2024-01-23 11:55] VITALS: BP 102/63; PULSE 73; O2SAT 99
--- NOTE | 2024-01-24 07:34 | DCPLANNER ---
messaged [facility] for er f/u
== END 2024-01-23 11:58 | disposition home or self-care (01) ==
PROVIDERS: Emergency Provider Emergency Medicine; PCP Family Medicine
DX: R10.11 Right upper quadrant pain (principal); R10.31 Right lower quadrant pain; D25.9 Leiomyoma of uterus, unspecified
CPT/HCPCS: 74177; 76830; 76856; 80053; 81001; 83690; 84703; 85025; 96374; 96375; 99285; J2270; J2405

== ENCOUNTER → 2024-02-11 15:17 | Outpatient (BNVA) | payer OTHER, SELFPAY | PROVIDERS: PCP Family Medicine; Visit Provider Obstetrics & Gynecology | DX: Z12.4 Encounter for screening for malignant neoplasm of cervix (principal) | CPT/HCPCS: 87624 ==

== ENCOUNTER → 2024-02-20 15:39 | Outpatient (BNVA) | payer OTHER, SELFPAY | PROVIDERS: PCP Family Medicine; Visit Provider Obstetrics & Gynecology | DX: D25.9 Leiomyoma of uterus, unspecified (principal) | CPT/HCPCS: 76830 ==

== ENCOUNTER 2025-03-18 16:28 | Emergency (ER) | payer OTHER, SELFPAY ==
[2025-03-18 16:30] VITALS: BP 152/108; PULSE 105; TEMP 36.4; O2SAT 100
--- NOTE | 2025-03-18 16:31 | ECG_ITS ---
[facility]: 2025-03-18 Pat Name: Ene Mcdonald Department: Room: Gender: Female Developer Architect: : 1985 Requested By: Mindy Robles Order Number: [id number] Whitaker MD: Daniel Calhoun M.D. Measurements Intervals [place] Rate: 95 P: 51 TN: 129 QRS: 38 QRSD: 84 T: 17 QT: 346 QTc: 435 Interpretive Statements SINUS RHYTHM MINIMAL ST DEPRESSION [0.025+ mV ST DEPRESSION] Compared to ECG 08/22/2023 17:46:21 ST (T wave) deviation now present Electronically Signed On 03-18-2025 17:15:34 STOCK PULLER by Daniel Calhoun M.D. [email or web address] [id number]
--- NOTE | 2025-03-18 16:31 | XR_ITS ---
WS: [id number] XR chest 1V portable [id number] REASON FOR EXAM: chest pain FINDINGS: Chest is unchanged compared to 08/22/2023. The heart and the mediastinum are within normal limits. Calcified granulomas disease bilaterally. No significant abnormality of the bony thorax. XR/XR chest 1V portable [id number] IMPRESSION: No acute chest abnormality.
--- NOTE | 2025-03-18 16:46 | ED_ITS ---
HPI - Chest Pain 2 General: Chief Complaint: Chest Pain Stated Complaint: chest pain Time Seen by Provider: 03/18/25 16:41 Source: patient Mode of arrival: ambulatory Limitations: no limitations History of Present Illness: Patient is a 39-year-old who presents to ED today for medical evaluation. 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 She states that she checked her blood sugar and it was 95. She states she did have some discomfort to the left side of her chest and substernally. She feels like she had some radiation into her left shoulder and arm. She does have a history of cervical radiculopathy but this normally affects her right side. She was not complaining of any neck pain. Initially thought maybe she had just slept wrong. No cardiac or pulmonary history. She is not complaining of shortness of breath or difficulty breathing. She was slightly tachycardic and hypertensive upon arrival but these have resolved and are normal at time of my examination. She also tells me she has had some intermittent/brief burning sensations to the lateral aspect of her left calf that occurred after she developed a muscle cramp several days ago. She has not noticed any swelling to the legs. No redness or warmth. MD complaint: chest pain Onset (ago): hour(s) Onset: during rest Pain location: substernal and left chest Pain radiation: left arm Relieving factors: nothing Exacerbating factors: nothing Associated symptoms: Deny abdominal pain, dyspnea, fever(s), nausea, palpitations, syncope or vomiting Treatment prior to arrival: none Risk Factors: Coronary artery disease risk factors: none Thoracic aortic dissection risk factors: none Related Data Previous Rx's ?Medication ?Instructions ?Recorded azithromycin 250 mg tablet See Rx Instructions PO .COM PLEX #6 09/09/24 tabs Allergies Allergy/AdvReac Type Severity Reaction Status Date / Time No Known Allergies Allergy Verified 09/09/24 07:10 Review of Systems 2 Const: Denies: fever(s), chills, body aches, fatigue or malaise Eyes: Denies: change in vision or blurry vision Card: Reports: chest pain; Denies: palpitations, irregular heart rhythm, edema, swelling of feet/ankles, lightheadedness, syncope, pre-syncope, dyspnea on exertion, orthopnea, leg pain with exertion or acrocyanosis Resp: Denies: dyspnea, productive cough or pain on inspiration GI: Denies: abdominal pain, nausea, vomiting, heartburn or diarrhea : Denies: dysuria Musc: Reports: joint pain (L shoulder) and other (intermittent burning L LE); Denies: neck pain, back pain, joint swelling, joint redness or limited range of motion Skin/Breast: Denies: rash Neuro: Denies: headache(s), numbness in extremities, weakness in extremities or sensory changes PFSH ED 2 PFSH: Medical History URI with cough and congestion No significant past medical history Surgical History History of lumpectomy of right breast benign Family History Grandmother Cancer ovarian Ovarian cancer Grandfather Cancer lung (smoker) Mother Hypertension Denies family history of Colon cancer Diabetes CAD (coronary artery disease) Heart disease Breast cancer Uterine cancer Thyroid disease Stroke Social History Smoking and tobacco/nicotine status: never used tobacco/nicotine Alcohol intake: current Alcohol intake frequency: holidays/special occasions only Substance/Drug Use: never Household members: significant other Marital status: Single Marital status details: engaged Number of children: 0 Current occupational status: employed 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, 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 Tiffanie/Hoahaoism: [employer] Special tiffanie needs: No Agree to transfusion: Yes Physical Exam 2 Const: COMMON NORMALS: no acute distress, average body habitus, patient oriented x3, no limitations, healthy appearing, alert and well nourished G ENERAL APPEARANCE: cooperative ORIENTATION/CONSCIOUSNESS: Yes awake, Yes oriented to person, Yes oriented to place and Yes oriented to time HENMT: COMMON NORMALS: normocephalic and atraumatic HEAD & SCALP: normal to inspection, normocephalic and atraumatic FACE & SINUS: normal facial exam and face symmetric Eye: GENERAL EYE: appearance normal, both eyes and all related structures Neck/C-Spine: COMMON NORMALS: full ROM, no lymphadenopathy, supple and no meningeal signs CERVICAL SPINE: No Cervical spine tenderness, No Paracervical muscle tenderness, No Trapezius muscle tenderness and No Lhermitte's sign positive Chest: COMMONS NORMALS: normal inspection of the chest and normal palpation of entire chest wall Resp: COMMON NORMALS: normal respiratory effort and clear to auscultation bilaterally AUSCULTATION: clear to auscultation bilaterally Cardio: COMMON NORMALS: regular rate and regular rhythm RATE: regular rate RHYTHM: regular rhythm GI: COMMON NORMALS: Normal to inspection, nondistended, normoactive bowel sounds present, Soft to palpation, non-tender, No hepatosplenomegaly present and no masses PALPATION: Yes Soft to palpation and Yes No hepatosplenomegaly present : COMMON NORMALS: Yes no CVA tenderness BLADDER/KIDNEY EXAM: Yes no CVA tenderness Back/Pelvis: COMMON NORMALS: no CVA tenderness and thoracic and lumbar spine normal to inspection Extremity: COMMON NORMALS: normal to inspection, full ROM, capillary refill normal, no joint enlargement, no clubbing, cyanosis or edema, no calf tenderness and no pedal edema GENERAL: Yes normal exam except as noted LEFT UPPER EXTREMITY: Yes shoulder joint (pain with ROM of L shoulder joint) Left shoulder joint: Yes inspection (normal gross inspection) and Yes neurovascular exam (normal) OTHER: normal inspection/exam of bilateral LEs-states she is not having symptoms currently to left leg Neuro: CHERELLE COMA SCALE: document GCS findings C[place]lle coma scale eye opening: Spontaneous [place] coma scale verbal response: Orientated [place] coma scale motor response: Obey commands [place] coma scale total score: 15 COMMON NORMALS: patient oriented x3, CN's II-XII intact bilaterally, moves all extremities, no focal motor deficits, no sensory deficits noted and gait normal SENSORIUM/ORIENTATION: Yes alert, Yes oriented to person, Yes oriented to place and Yes oriented to time MENINGEAL SIGNS: Yes no meningeal signs Skin: COMMON NORMALS: no rashes or lesions noted GENERAL SKIN EXAM: no rashes or lesions noted Course 2 Vital Signs: Vital signs: Vital Signs Temperature 97.6 F 03/18/25 16:30 Pulse Rate 90 03/18/25 19:15 Blood Pressure 145/85 03/18/25 19:15 Pulse Oximetry 95 03/18/25 19:15 Oxygen Delivery Me thod Room Air 03/18/25 17:59 MDM - Chest Pain Medical Decision Making Patient is a 39-year-old female with no risk factors here for complaint of chest pain with radiation to the left arm/shoulder pain/episode of feeling clammy and nauseous prior to arrival. She arrives here in no acute distress. Vital signs are stable. Workup from the emergency department consisted of CBC, BMP, D- dimer, TSH, baseline repeat troponins as well as baseline repeat EKGs, and CXR. These are unremarkable. Heart score is 0. She feels comfortable going home and following up with primary care. Return precautions discussed. Medical Records I reviewed the patient's medical records. Lab Data I reviewed the patient's lab results. 03/18/25 17:16 03/18/25 17:16 Radiology Impressions Chest X-Ray 03/18/25 16:31 IMPRESSION: No acute chest abnormality. Laboratory Results WBC 5.68 10^3/uL (3.29-11.43) 03/18/25 17:16 RBC 3.93 10^6/uL (3.85-5.65) 03/18/25 17:16 Hgb 12.00 g/dL (11.27-16.99) 03/18/25 17:16 Hct 35.6 % (36-47) L 03/18/25 17:16 MCV 90.6 fl (85-98) 03/18/25 17:16 MCH 30.5 pg (27-33) 03/18/25 17:16 MCHC 33.7 g/dL (30-55) 03/18/25 17:16 RDW 12.8 % (12.1-15.1) 03/18/25 17:16 Plt Count 224 10^3/cmm (157-399) 03/18/25 17:16 MPV 10.3 fL (7.4-10.4) 03/18/25 17:16 Neut % (Auto) 66.1 % 03/18/25 17:16 Lymph % (Auto) 24.1 % 03/18/25 17:16 [place] % (Auto) 7.7 % 03/18/25 17:16 Eos % (Auto) 1.2 % 03/18/25 17:16 Baso % (Auto) 0.5 % 03/18/25 17:16 Neut # (Auto) 3.75 10^3/uL (1.8-7.7) 03/18/25 17:16 Lymph # (Auto) 1.4 10^3/uL (0.8-4.8) 03/18/25 17:16 [place] # (Auto) 0.4 10^3/uL (0.2-0.9) 03/18/25 17:16 Eos # (Auto) 0.1 10^3/uL (0.0-0.8) 03/18/25 17:16 Baso # (Auto) 0.0 10^3/uL (0.0-0.1) 03/18/25 17:16 Nucleated RBC % (auto) 0 % 03/18/25 17:16 Nucleated RBCs # 0.0 /100WBC 03/18/25 17:16 D-Dimer <= 0.27 ug/mLFEU (0-0.59) 03/18/25 17:16 Sodium 139 mmol/L (136-145) 03/18/25 17:16 Potassium 3.6 mmol/L (3.5-5.1) 03/18/25 17:16 Chloride 103 mmol/L (98-107) 03/18/25 17:16 Carbon Dioxide 22 mmol/L (22-29) 03/18/25 17:16 Anion Gap 17.6 (5-19) 03/18/25 17:16 BUN 11 mg/dL (6-20) 03/18/25 17:16 Creatinine 0.8 mg/dL (0.5-0.9) 03/18/25 17:16 GFR Calculation 80.7 mL/min (90-130) L 03/18/25 17:16 Glucose 111 mg/dL (65-115) 03/18/25 17:16 Calculated Osmolality 288 mOsm/kg (285-295) 03/18/25 17:16 Calcium 9.2 mg/dL (8.5-10.5) 03/18/25 17:16 Troponin T Baseline < 6 ng/L (0-10) 03/18/25 17:16 Troponin T 60 Minute < 6.0 ng/L (0-10) 03/18/25 18:15 Delta Troponin T 0 ABS# (0-10) 03/18/25 18:15 TSH 3.82 uIU/mL (0.27-4.20) 03/18/25 17:16 Ser , Semi-Qnt < 1.00 mIU/mL 03/18/25 17:16 All radiology interpretation(s) finalized by discharge EKG Data EKG 1: EKG interpretation date: 03/18/25 EKG interpretation time: 16:34 Interpretation: Normal sinus rhythm Rate [address] elevation or depression changes noted Normal IA interval EKG 2: EKG interpretation date: 03/18/25 EKG interpretation time: 17:26 Prior EKG tracings: available for review Interpretation: Normal sinus rhythm Rate 85 No acute changes when compared to EKG performed earlier on same visit Normal IA interval No acute ST elevation or depression changes noted Discharge Plan Discharge Patient Disposition: Home Clinical Impression: Atypical chest pain Condition: Stable Prescriptions: No Action azithromycin 250 mg tablet See Rx Instructions PO .COMPLEX Qty: 6 0RF Rx Instructions: For 250 mg dose pack: take 500 mg today (day 1), then 250 mg for 4 days (days 2-5) PO Discharge Orders: Discharge ED (Routine); Ordered 03/18/25 Ordered By: Madisyn Zendejas Referrals: Mabel Wells MD [Primary Care Provider, Family Practice] Patient Instructions: Chest Pain (DC), Patient Portal & Elias Instructions Activity Restrictions/Additional Instructions: As we discussed, emergency department workup here including CBC, BMP, TSH, ddimer, baseline and repeat troponins, chest XR, baseline and repeat EKGs all of which are unremarkable. We spoke about following up with primary care for further evaluation if symptoms persist. You may return to the emergency department at any time for any further concerns you may have. Print Language: Faroese Coding Level of Care Code ED Medical Asst for Chg Fwd Heart Score HEART Score Components History: Slightly Suspicous EKG: Normal Age: Less than 45 yrs Risk Factors: No Risk Factors Known Troponin: Baseline Trop <16 ng/L HEART Score RESULT HEART Score: 0
[2025-03-18 17:02] VITALS: BP 125/97; PULSE 97; O2SAT 99
[2025-03-18 17:09] VITALS: BP 125/97; PULSE 98; O2SAT 100
--- NOTE | 2025-03-18 17:26 | ECG_ITS ---
[email or web address] [place]: 2025-[facility]18 Pat Name: Ene Mcdonald Department: Room: Gender: Female School Guard: : 1985 Requested By: Mindy Robles Order Number: [id number] Sherman MD: Daniel Calhoun M.D. Measurements Intervals [place] Rate: 85 P: 54 MO: 127 QRS: 40 QRSD: 83 T: 17 QT: 349 QTc: 417 Interpretive Statements SINUS RHYTHM Compared to ECG 03/18/2025 16:34:27 ST (T wave) deviation no longer present Electronically Signed On 03-18-2025 17:34:29 ELECTRICIAN THIRD by Daniel Calhoun M.D. [email or web address] [id number]
[2025-03-18 17:28] LABS: Hematocrit 35.6 % (36-47); Hemoglobin 12.00 g/dL (11.27-16.99); Mean Corpuscular HGB Conc 33.7 g/dL (30-55); Mean Corpuscular Hemoglobin 30.5 pg (27-33); Mean Corpuscular Volume 90.6 fl (85-98); Nucleated Red Blood Cells % 0 %; Platelet Count 224 10^3/cmm (157-399); Red Blood Count 3.93 10^6/uL (3.85-5.65); White Blood Count 5.68 10^3/uL (3.29-11.43)
[2025-03-18 17:37] VITALS: BP 135/93; PULSE 89; O2SAT 99
[2025-03-18 17:51] LABS: Troponin(5th) Baseline < 6 ng/L (0-10)
[2025-03-18 17:59] VITALS: BP 137/87; PULSE 77; O2SAT 100
--- NOTE | 2025-03-18 18:00 | PC.NURSE ---
Pt. reports cp has decreased, but still having pain in shoulder
[2025-03-18 18:02] LABS: Thyroid Stimulating Hormone 3.82 uIU/mL (0.27-4.20)
[2025-03-18 18:15] LABS: Anion Gap 17.6 (5-19); Blood Urea Nitrogen 11 mg/dL (6-20); Calcium 9.2 mg/dL (8.5-10.5); Carbon Dioxide 22 mmol/L (22-29); Chloride 103 mmol/L (98-107); Glucose 111 mg/dL (65-115); Osmolality Calculated 288 mOsm/kg (285-295); Potassium 3.6 mmol/L (3.5-5.1); Sodium 139 mmol/L (136-145)
[2025-03-18 19:15] VITALS: BP 145/85; PULSE 90; O2SAT 95
--- OUTSIDE RECORDS SUMMARY | 2025-03-18 19:45 | XMS_ITS | Clinical Summary ---
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
--- OUTSIDE RECORDS SUMMARY | 2025-03-18 19:45 | XMS_ITS | Clinical Summary ---
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
== END 2025-03-18 19:17 | disposition home or self-care (01) ==
PROVIDERS: Emergency Medicine; Emergency Provider Physician Assistant; PCP Family Medicine
DX: R07.89 Other chest pain (principal)
CPT/HCPCS: 36415; 71045; 80048; 84443; 84484; 84702; 85025; 85378; 93005; 99285